=== PATIENT | male | born 1965 | race Caucasian/White ===

== ENCOUNTER 2020-06-08 10:10 | Outpatient (CLI) | payer OTHER | END 2020-06-08 10:11 | disposition home or self-care (01) | LOC: COV 10:10 | PROVIDERS: ATTEND Family Medicine | DX: R06.02 Shortness of breath (principal); M79.10 Myalgia, unspecified site; R53.83 Other fatigue; R68.83 Chills (without fever); R09.81 Nasal congestion; Z20.828 Contact with and (suspected) exposure to other viral communicable diseases ==

== ENCOUNTER 2020-06-17 08:00 | Outpatient (CLI) | payer OTHER | END 2020-06-17 08:01 | disposition home or self-care (01) | LOC: LAB.R 08:00 | PROVIDERS: ATTEND Physician Assistant | DX: J20.9 Acute bronchitis, unspecified (principal) | CPT/HCPCS: 87070; 87205 ==

== ENCOUNTER 2022-06-09 20:24 | Emergency (ER) | payer OTHER ==
--- NOTE | 2022-06-09 21:28 | XRAY Report ---
PROCEDURE: Ankle 3 View LT INDICATIONS: Trauma TECHNIQUE: 3 views of the ankle were acquired. COMPARISON: None FINDINGS: Bones: No dislocations but on the lateral view there is clear evidence of a comminuted minimally dis placed calcaneal fracture. Ankle mortise is normally aligned. No suspicious bony lesions. Soft tissues: No tibiotalar joint effusion. Achilles tendon appears normal. Soft tissue swelling o kerry the lateral malleolus IMPRESSION: Soft tissue swelling over the lateral malleolus and there is an associated comminuted bu t only minimally displaced calcaneal fracture. The fracture is considered likely unstable. Normal ali gnment at the ankle mortise joint. Reviewed by: Regan Garcia MD on 06/09/2022 9:27 PM PDT Approved by: Regan Garcia MD on 06/09/2022 9:27 PM PDT Station ID: [id number]
--- NOTE | 2022-06-09 23:26 | CT Report ---
PROCEDURE: LOWER EXTREMITY WO - LT INDICATIONS: calcaneal fracture on xray TECHNIQUE: Noncontrast 3-mm axial sections acquired from the distal tibial shaft to the talar dome, with coronal and sagittal reformats. For radiation dose reduction, the following was used: automated exposure c ontrol, adjustment of mA and/or kV according to patient size. COMPARISON: Ankle plain films earlier same day.. FINDINGS: Image quality: Excellent. Bones: The calcaneal fracture seen by plain film imaging earlier same day appeared to have both long itudinal and vertically oriented fracture components, confirmed by the current CT scanning. There is a major vertically oriented fracture located just anterior to the posterior facet of the subtalar colette nt, and also a second vertically oriented fracture just posterior to the articular margin of the post erior subtalar joint. A longitudinally oriented fracture extends through the mid body of the calcaneu s, and there is abnormal rotation of the posterior calcaneal fragment by approximately 20 degrees. Co mminution is more prominent medially than laterally along the fracture planes, with medial displaced fracture fragments at the mid body level by approximately 7 mm. Several of these medial bone fragment s are rotated as a result of impaction. Soft tissues: Prominent soft tissue edema as was also seen by plain film imaging, without focal patricia daly. Impression: Severe calcaneal fracture, comminuted and displaced, with both impaction and medial devia tion of fracture fragments is noted. No additional fracture elsewhere through the hindfoot or midfoot is seen. This fracture is clearly unstable and operative intervention is anticipated. Reviewed by: Regan Garcia MD on 06/09/2022 11:25 PM PDT Approved by: eRgan Garcia MD on 06/09/2022 11:25 PM PDT Station ID: [id number]
--- NOTE | 2022-06-10 00:39 | ED Physician Documentation ---
PD HPI LOWER EXT INJURY - Stated complaint Stated Complaint: LT ANKLE INJ - Chief complaint Chief Complaint: Trauma Ext - History obtained from History obtained from: Patient - History of Present Illness PD HPI LOW EXT INJURY LOCATION: Left, Ankle, Foot Type of injury: Fall (jumped as ladder fell, about 4 feet and laded on feet. Pain in left ankle/heel.) Where injury occurred: Home Timing - onset: How many hours ago (2), Today Timing - duration: Hours Timing - details: Abrupt onset, Still present Worsened by: Moving, Palpating, Other (attempting standing) Associated symptoms: Swelling. No: Weakness, Numbness Similar symptoms before: Has not had sx before Recently seen: Not recently seen Review of Systems Skin: denies: Abrasion (s), Laceration (s) Musculoskeletal: reports: Extremity pain, Extremity swelling (ankle/heel). denies: Back pain Neurologic: denies: Focal weakness, Numbness, Head injury, LOC PD PAST MEDICAL HISTORY - Past Medical History Cardiovascular: None Respiratory: None Endocrine/Autoimmune: None GI: GERD, Hemorrhoids : None HEENT: None Psych: None Musculoskeletal: None Derm: None - Present Medications Home Medications: Ambulatory Orders Medication Instructions Recorded Confirmed Naproxen 500 mg PO BID #20 tab 06/10/22 Oxycodone HCl/Acetaminophen 1 - 2 each PO Q6H PRN #20 tablet 06/10/22 [Percocet 5-325 mg Tablet] - Allergies Allergies/Adverse Reactions: Allergies Allergy/AdvReac Type Severity Reaction Status Date / Time No Known Drug Allergies Allergy Verified 06/09/22 20:36 PD ED PE NORMAL - Vitals Vital signs reviewed: Yes - General General: Alert and oriented X 3, No acute distress, Well developed/nourished - Back Back: No spinal TTP - Derm Derm: Normal color, Warm and dry - Extremities Extremities: Other (left lower ankle and heel with significant swelling, tenderness. No gross deformity. Normal color and cap refill in toes. Knee not tender. ) - Neuro Neuro: Alert and oriented X 3, No motor deficit, No sensory deficit, Normal speech Results - Vitals Vitals: Oxygen O2 Source Room air - Rads (name of study) ankle xray Radiology: Prelim report reviewed (fractures calcaneus.), EMP read contemporaneously (loss of bohlers angle, with fractures. Will get CT. ), See rad report CT foot/ankle Radiology: Prelim report reviewed (comminuted fracture. ), See rad report Procedures - Splint (location) left foot Splint applied by: Physician Type of splint: Fiberglass, Stirrup (very bulky dressing applied and stirrup splint. Patient states feels comfortable.) Other: Patient tolerated well, No complications, Neurovascular intact, Crutches provided PD MEDICAL DECISION MAKING - ED course Complexity details: reviewed results, considered differential, d/w patient Departure - Departure Disposition: Home, Self Care Clinical Impression: Fall from ladder Qualifiers: Encounter type: initial encounter Qualified Code(s): W11.XXXA - Fall on and from ladder, initial encounter Calcaneal fracture Qualifiers: Encounter type: initial encounter Calcaneus location: body Fracture type: closed Fracture alignment: displaced Laterality: left Qualified Code(s): S9 2.012A - Displaced fracture of body of left calcaneus, initial encounter for closed fracture Condition: Stable Record reviewed to determine appropriate education?: Yes Instructions: ED Fx Foot Follow-Up: Mauro Cardenas MD [Provider Admit Priv/Credential] - Prescriptions: Naproxen 500 mg PO BID #20 tab Oxycodone HCl/Acetaminophen [Percocet 5-325 mg Tablet] 1 - 2 each PO Q6H PRN #20 tablet PRN Reason: pain Comments: Keep the splint in place. Ice elevate and rest the heel often to reduce swelling. Crutches for nonweightbearing. Anti-inflammatory such as naproxen 500 mg 2-3 times daily with food. To that add Tylenol every 4-6 hours if needed for pain or oxycodone/acetaminophen if needed for worse pain. Call the orthopedic office Saturday for an appointment for later in the week. Typically the orthopedist want the swelling to go down on these for reevaluation and at that point there would be a discussion whether it needs surgical repair or just cast alone. I am prescribing a short course of narcotic pain medication for you. These are potentially dangerous and addictive medications that should be used carefully. These medications may constipate you. Take an [id number] stool softener such as docusate twice daily with plenty of water while taking these medications. If you go 24 hours without a bowel movement, take [id number]-yse-[id number] MiraLAX, per package instructions. Do not drink or drive while taking these medications. If you received narcotic or sedating medications while in the emergency department do not drive for 24 hours. Store this medication in a safe, secure place and out of reach of children. It is a violation of federal law to give or sell this medication to another person or to use in a manner other than prescribed. The ED will not refill narcotic prescriptions, including prescriptions lost or stolen. You can dispose of unwanted medications at the [facility]'s office or at several pharmacies such as [facility]. Discharge Date/Time: 06/10/22 01:16 PDT
[2022-06-10] MEDS ORDERED: oxyCODONE 5 MG TABLET PO STA (00:50)
[2022-06-10] MEDS ORDERED: IBUPROFEN 600 MG TABLET PO STA (00:50)
[2022-06-10] MEDS ORDERED: oxyCODONE/ACET 5/325 Prepack 4 PO STA (00:50)
[2022-06-10 01:16] VITALS: BP 150/89
== END 2022-06-10 01:16 | disposition home or self-care (01) ==
LOC: ED 20:24
DX: S92.012A Displaced fracture of body of left calcaneus, initial encounter for closed fracture (principal); W11.XXXA Fall on and from ladder, initial encounter; Y92.009 Unspecified place in unspecified non-institutional (private) residence as the place of occurrence of the external cause
CPT/HCPCS: 73610; 73700; 99283; 99284; A9270

== ENCOUNTER 2022-07-17 14:39 | Outpatient (CLI) | payer OTHER ==
--- NOTE | 2022-07-17 17:53 | XRAY Report ---
PROCEDURE: Calcaneus LT INDICATIONS: LEFT CALCANEUS FRACTURE TECHNIQUE: Two views of the calcaneus were acquired. COMPARISON: 06/09/2022 FINDINGS: Bones: Comminuted fracture of the calcaneus shows increasing sclerosis and remodeling. Bridging callu s present. Soft tissues: No suspicious calcifications. Achilles tendon appears normal. IMPRESSION: Healing comminuted calcaneal fracture Reviewed by: Rosas Jiménez MD on 07/17/2022 4:51 PM AKST Approved by: Rosas Jiménez MD on 07/17/2022 4:51 PM AKST Station ID: [id number]
== END 2022-07-17 14:40 | disposition home or self-care (01) ==
LOC: DI.WOS 14:39
PROVIDERS: ATTEND Orthopaedic Surgery
DX: S92.062D Displaced intraarticular fracture of left calcaneus, subsequent encounter for fracture with routine healing (principal)

== ENCOUNTER 2022-08-21 16:55 | Outpatient (CLI) | payer OTHER ==
--- NOTE | 2022-08-21 17:28 | XRAY Report ---
PROCEDURE: Foot 3 View LT INDICATIONS: LEFT CALCANEUS FRACTURE TECHNIQUE: 4 views of the foot were acquired. COMPARISON: 07/17/2022 and 06/09/2022 FINDINGS: Bones: Interval healing at patient's known severely comminuted calcaneal fracture sites are seen. Ove rall alignment of left foot is not significantly changed from prior study. No new fracture or disloca tion. Osteopenia is seen. Osteoarthritic changes are also noted throughout left foot. No suspicious b wilver lesions. Soft tissues: No tibiotalar joint effusion. Achilles tendon appears normal. IMPRESSION: Interval further healing at comminuted calcaneal fracture site with stable calcaneal alignment. No ne w fracture or dislocation. Osteopenia and left foot osteoarthritis. Reviewed by: Danis Darling MD on 08/21/2022 5:26 PM PST Approved by: Danis Darling MD on 08/21/2022 5:26 PM PST Station ID: [id number]
== END 2022-08-21 16:59 | disposition home or self-care (01) ==
LOC: DI.WOS 16:55
PROVIDERS: ATTEND Orthopaedic Surgery
DX: S92.002D Unspecified fracture of left calcaneus, subsequent encounter for fracture with routine healing (principal); M85.88 Other specified disorders of bone density and structure, other site; M19.072 Primary osteoarthritis, left ankle and foot

== ENCOUNTER 2022-10-18 15:11 | Outpatient (CLI) | payer OTHER ==
--- NOTE | 2022-10-18 12:49 | XRAY Report ---
PROCEDURE: Foot 3 View LT INDICATIONS: LEFT FOOT/CALCANEUS FRACTURE TECHNIQUE: 4 views of the foot were acquired. COMPARISON: 08/21/2022, 07/17/2022, 06/09/2022 FINDINGS: Bones: Disuse osteopenia. No discrete calcaneal fracture planes are seen. The contour of the calcaneu s resulting from prior comminuted fracture is abnormal but unchanged compared to the prior study. No suspicious bony lesions. No significant pes planus deformity with weightbearing. Mild osteoarthritic changes distally in the left foot. Soft tissues: No tibiotalar joint effusion. Achilles tendon appears normal. IMPRESSION: 1. Stable, healing comminuted calcaneal fracture. 2. Disuse osteopenia. 3. No significant pes planus deformity with weightbearing. Reviewed by: Lor Zaman MD on 10/18/2022 12:48 PM PDT Approved by: Lor Zaman MD on 10/18/2022 12:48 PM PDT Station ID: [id number]
== END 2022-10-18 17:27 | disposition home or self-care (01) ==
LOC: DI.WOS 15:11
PROVIDERS: ATTEND Orthopaedic Surgery
DX: S92.002D Unspecified fracture of left calcaneus, subsequent encounter for fracture with routine healing (principal); M85.872 Other specified disorders of bone density and structure, left ankle and foot